=== PATIENT | female | born 1940 | race Caucasian/White ===

== ENCOUNTER 2016-08-11 17:21 | Inpatient (IN) | payer OTHER, BC ==
[2016-08-11 18:32] VITALS: BMI 32.0
--- NOTE | 2016-08-11 21:20 | HP ---
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 Approximately 1 year ago, she was diagnosed with left Achilles tendonitis and notes her gait changed. She states that after her gait changed, she started having right hip and lower back pain. She denies trauma to lower back or hips. The pain was initially controlled with NSAIDS but NSAIDS no longer have any effect and the pain has now progressed to the point that she requires a walker for ambulation. She states that for the past month she has had intermittent urinary incontinence. She is currently scheduled for right THR on 08/14/16 [facility]. Recent Travel: denies PAST MEDICAL HISTORY: HTN, GERD, hyperthyroidism, chronic lower back pain, osteoporosis, AVN of right femoral head PAST SURGICAL HISTORY: denies Social History: Smokin pack years current some day smoker Smoking cessation counseling offered and refused Alcohol: denies Drugs: denies Occupation: retired Resides with with multiple medical problems for whom she is the sole caregiver Family History: non-contributory Allergies epinephrine Allergy-> "difficulty breathing" (Verified 08/10/16 11:29) HOME MEDICATIONS: Home Medications 3 Medication Instructions Recorded Ca/D3/Mag#11/Zinc/Stacker/Turner/Bor 1 each PO DAILY 08/10/16 [Caltrate 600+D Plus Tablet] Cholecalciferol (Vitamin D3) 1,000 unit PO DAILY 08/10/16 [Vitamin D3 -] Hydrochlorothiazide [Hctz -] 12.5 mg PO DAILY 08/10/16 Methimazole [Tapazole -] 5 mg PO DAILY 08/10/16 Metoprolol Succinate [Toprol Xl -] 50 mg PO DAILY MDD 50 mg 08/10/16 Omeprazole 40 mg PO DAILY 08/10/16 Simvastatin [Zocor -] 20 mg PO HS MDD 20 mg 08/10/16 Valsartan [Diovan] 160 mg PO DAILY MDD 160 mg 08/10/16 Zolpidem Tartrate [Ambien] 10 mg PO HS MDD 10 mg 08/10/16 REVIEW OF SYSTEMS CONSTITUTIONAL: Absent: fever, chills, diaphoresis, generalized weakness, malaise, loss of appetite, weight change HEENT: Absent: rhinorrhea, nasal congestion, throat pain, throat swelling, difficulty swallowing, mouth swelling, ear pain, eye pain, visual changes CARDIOVASCULAR: Absent: chest pain, syncope, palpitations, irregular heart rate, lightheadedness , peripheral edema RESPIRATORY: Absent: cough, shortness of breath, dyspnea with exertion, orthopnea, wheezing, stridor, hemoptysis GASTROINTESTINAL: Absent: abdominal pain, abdominal distension, nausea, vomiting, diarrhea, constipation, melena, hematochezia GENITOURINARY: Urinary incontinence Absent: dysuria, frequency, urgency, hesitancy, hematuria, flank pain, genital pain MUSCULOSKELETAL: back pain, right hip pain Absent: myalgia, arthralgia, joint swelling, neck pain SKIN: Absent: rash, itching, pallor HEMATOLOGIC/IMMUNOLOGIC: Absent: easy bleeding, easy bruising, lymphadenopathy, frequent infections ENDOCRINE: Absent: unexplained weight gain, unexplained weight loss, heat intolerance, cold intolerance NEUROLOGIC: bladder incontinence Absent: headache, focal weakness or paresthesias, dizziness, unsteady gait, seizure, mental status changes, saddle anesthesia PSYCHIATRIC: Absent: anxiety, depression, suicidal or homicidal ideation, hallucinations. PHYSICAL EXAMINATION Vital Signs - 24 hr 3 08/11/16 08/11/16 17:58 18:27 Temperature 98.2 F 98.2 F Pulse Rate 63 82 Respiratory 16 17 Rate Blood Pressure 126/47 123/63 O2 Sat by Pulse 99 Oximetry (%) GENERAL: Awake, alert, and fully oriented, in no acute distress. HEAD: Normal with no signs of trauma. EYES: Pupils equal, round and reactive to light, extraocular movements intact, sclera anicteric, conjunctiva clear. No lid lag. EARS, NOSE, THROAT: Ears normal, nares patent, oropharynx clear without exudates. Moist mucous membranes. NECK: Normal range of motion, supple without lymphadenopathy, JVD, or masses. LUNGS: Breath sounds equal, clear to auscultation bilaterally. No wheezes, and no crackles. No accessory muscle use. HEART: occasional irregular rhythm, normal S1 and S2 without murmur, rub or gallop. ABDOMEN: Soft, nontender, not distended, normoactive bowel sounds, no guarding, no rebound, no masses. No hepatomegaly or splenomegaly. MUSCULOSKELETAL: Normal range of motion at all joints except right hip where ROM decreased due to pain. Able to range against resistance to joints distal to Right hip. No bony deformities. Tenderness over right hip and sacrum. No CVA tenderness. UPPER EXTREMITIES: 2+ pulses, warm, well-perfused. No cyanosis. No clubbing. No peripheral edema. Abrasion to left anterior lower leg. LOWER EXTREMITIES: 2+ pulses, warm, well-perfused. No calf tenderness. No peripheral edema. NEUROLOGICAL: Cranial nerves II-XII intact. Normal speech. No change in sensation to BLE. PSYCHIATRIC: Cooperative. Good eye contact. Appropriate mood and affect. SKIN: Warm, dry, normal turgor, no rashes or lesions noted, normal capillary refill. Blanchable erythema in groin. EKG: SR with occasional PAC's Ventricular rate of 69 LA- 120ms QRS- 80ms QT- 400ms ASSESSMENT/PLAN: A: This is a 75 yo woman with history of HTN, GERD, hypothyroidism, chronic lower back pain, osteoporosis and AVN of right femoral head who was transferred from [facility] s/p evaluation of [facility] [place] medical optimization and pain management pre-op for right THR on 08/14/16. Neurosurgical evaluation reveals no surgical intervention for narrowing of spinal canal at this time. She denies trauma to lower back or hips. She states that for the past month she has had intermittent urinary incontinence- none in past 48 hours. Occasional irregular beats noted- will do EKG. +3 leuk esterase with no bacteria seen on UA will cx and treat P: AVN of right femoral head -gabapentin and Percocet for pain control -pre-op labs collected on 08/10- no contraindications for THR -Ortho- Lent following -T&S -EKG as noted above HTN -continue home meds Hyperthyroid -continue home meds UTI -cx -start Keflex F/E/N -regular diet now -NPO after MN 06/14/16 -IVF when NPO Dispo: Currently requires inpatient management of pain pre-op Code Status: FULL CODE Visit type - Emergency Visit Emergency Visit: No - New Patient This patient is new to me today: Yes Date on this admission: 08/24/16 - Critical Care Critical Care patient: No
[2016-08-11] MEDS ORDERED: OXYCODONE/APAP 5/325MG COMBO TABLET PO ONE (22:35)
[2016-08-11] MEDS: HEPARIN NA (PORCINE) 5,000 UNITS/ML 1ML VIAL SQ SCH (22:54)
[2016-08-11] MEDS: GABAPENTIN 100 MG CAPSULE (FP) PO SCH (22:55)
[2016-08-11] MEDS: ZOLPIDEM TARTRATE 5 MG TABLET PO PRN (23:03)
[2016-08-12] MEDS: GABAPENTIN 100 MG CAPSULE (FP) PO SCH ×3 (06:34→21:11)
[2016-08-12] MEDS: CEPHALEXIN MONOHYDRATE 500 MG CAPSULE (UD) PO SCH ×3 (06:34→17:42)
[2016-08-12] MEDS: OXYCODONE/APAP 5/325MG COMBO TABLET PO PRN ×3 (06:35→23:59)
[2016-08-12] MEDS: NYSTATIN POWDER 100,000 UNITS/GM - 15 GM TOPICAL POWDER TP SCH ×3 (06:36→21:11)
[2016-08-12] MEDS: METHIMAZOLE 5 MG TABLET (FP) PO SCH (09:49)
[2016-08-12] MEDS: HEPARIN NA (PORCINE) 5,000 UNITS/ML 1ML VIAL SQ SCH ×2 (09:49→21:12)
[2016-08-12] MEDS: VALSARTAN 160 MG TABLET (UD) PO SCH (09:49)
[2016-08-12] MEDS: METOPROLOL SUCCINATE 50 MG TAB.SR.24H (FP) PO SCH (09:49)
[2016-08-12] MEDS: PANTOPRAZOLE 40 MG TABLET (FP) PO SCH (09:49)
[2016-08-12] MEDS: HYDROCHLOROTHIAZIDE 12.5 MG CAPSULE (FP) PO SCH (09:49)
[2016-08-12] MEDS: CHOLECALCIFEROL (VITAMIN D3) 1,000 UNIT TABLET (FP) PO SCH (09:49)
--- NOTE | 2016-08-12 10:18 | PN ---
Physical Exam: SUBJECTIVE: Patient seen and examined Reports Rt hip pain controlled with pain medications, denies cp, sob, palpitations, dizziness, weakness,abdominal pain, N/V/D or urinary symptoms. OBJECTIVE: Vital Signs Period Temp Pulse Resp BP Sys/Kelly Pulse Ox Last 24 Hr 98.2 F-99.3 F 63-82 16-20 107-130/33-63 94-99 GENERAL: The patient is awake, alert, and fully oriented, in no acute distress. HEAD: Normal with no signs of trauma. EYES: PERRL, extranuclear movements intact, sclera anicteric, conjunctiva clear. No ptosis. ENT: Ears normal, nares patent, oropharynx clear without exudates, moist mucous membranes. NECK: Trachea midline, full range of motion, supple. LUNGS: Breath sounds equal, clear to auscultation bilaterally, no wheezes, no crackles, no accessory muscle use. HEART: Regular rate and rhythm, S1, S2 without murmur, rub or gallop. ABDOMEN: Soft, nontender, nondistended, normoactive bowel sounds, no guarding, no rebound, no hepatosplenomegaly, no masses. EXTREMITIES: 2+ pulses, warm, well-perfused, no edema, Rt hip tenderness NEUROLOGICAL: Cranial nerves II through XII grossly intact. Normal speech, gait not observed. PSYCH: Normal mood, normal affect. SKIN: Warm, dry, normal turgor, no rashes or lesions noted Active Medications Generic Name Dose Route Start Last Admin Trade Name Freq PRN Reason Stop Dose Admin Atorvastatin Calcium 10 mg 08/12/16 22:00 Lipitor - PO HS WALKER Cephalexin HCl 500 mg 08/12/16 06:00 08/12/16 06:34 Keflex - PO 500 mg Q6HPO WALKER Administration Cholecalciferol 1,000 unit 08/12/16 10:00 08/12/16 09:49 Vitamin D3 - PO 1,000 unit DAILY WALKER Administration Gabapentin 100 mg 08/11/16 22:30 08/12/16 06:34 Neurontin - PO 100 mg TID WALKER Administration Heparin Sodium (Porcine) 5,000 unit 08/11/16 22:00 08/12/16 09:49 Heparin - SQ 5,000 unit BID WALKER Administration Hydrochlorothiazide 12.5 mg 08/12/16 10:00 08/12/16 09:49 Hctz - PO Not Given DAILY WALKER Methimazole 5 mg 08/12/16 10:00 08/12/16 09:49 Tapazole - PO 5 mg DAILY WALKER Administration Metoprolol Succinate 50 mg 08/12/16 10:00 08/12/16 09:49 Toprol Xl - PO Not Given DAILY WALKER Non-Formulary Medication 1 each 08/12/16 10:00 Ca/D3/Mag#11/Zinc/[place]/Turner/Bor [Caltrate 600+D Plus Tablet] PO DAILY WALKER Nystatin 1 applic 08/12/16 06:00 08/12/16 06:36 Nystop Powder - TP 1 applic TID WALKER Administration Oxycodone/Acetaminophen 2 combo 08/11/16 22:31 08/12/16 06:35 Percocet 5/325 - PO 2 combo Q6H PRN Administration PAIN LEVEL 6-10 Pantoprazole Sodium 40 mg 08/12/16 10:00 08/12/16 09:49 Protonix - PO 40 mg DAILY WALKER Administration Valsartan 160 mg 08/12/16 10:00 08/12/16 09:49 Diovan - PO Not Given DAILY WALKER Zolpidem Tartrate 5 mg 08/11/16 22:51 08/11/16 23:03 Ambien - PO 5 mg HS PRN Administration EKG: SR with occasional PAC's xray of right hip pelvis: marked joint space narrowing with subchondral sclerosis and lucencies and with focal concavity of the superolateral right femoral head concerning for AVN w/subchondral collapse and DJD. as per radiologist Dr Mojica MRI of lumbar spine w/o contrast: (08/09/16) severe spinal stenosis at L2-L3 through L4-L%. At the level of the L2 vertebral body there is buckling of the nerve roots of the cauda equina. L5-S1 there is billateral L5 nerve root impingement. as per radiologist Dr Ching ([facility]) ASSESSMENT/PLAN: This is a 75 yo woman with history of HTN, GERD, hypothyroidism, chronic lower back pain, osteoporosis and AVN of right femoral head who was transferred from [facility]s/p evaluation of [facility] [place] [place] for medical optimization and pain management. Now with ongoing worsening of hip and lower back pain for the past 24 hours and the inability to ambulate independently. Dr Chadwick and was referred to the emergency department for further management of a right femoral head fracture secondary to AVN. *AVN of right femoral head -Gabapentin and Percocet for pain control -pre-op labs collected on 08/10- no contraindications for THR -Ortho- Lent following -T&S -for right THR on 08/14/16. *HTN- Bp controlled -continue home meds *Hyperthyroid -continue home meds *UTI asymptomatic -will repeat UA -on Keflex - afebrile * urinary retention - bladder scan showed >600 urine retention - Dasilva placed - will order bladder US - will monitor urine output F/E/N -regular diet now -NPO after MN 08/14/16 -IVF when NPO Dispo: Currently requires inpatient management of pain pre-op Code Status: FULL CODE Visit type - Emergency Visit Emergency Visit: Yes ED Registration Date: 08/11/16 Care time: The patient presented to the Emergency Department on the above date and was hospitalized for further evaluation of their emergent condition. - New Patient This patient is new to me today: Yes Date on this admission: 08/12/16 - Critical Care Critical Care patient: No
[2016-08-12 11:41] LABS: PH,URINE 6.5 (4.5-8); URINE APPEARANCE Clear; URINE BILIRUBIN Negative (NEGATIVE); URINE BLOOD Negative (NEGATIVE); URINE GLUCOSE (UA) Negative (NEGATIVE); URINE KETONE Negative (NEGATIVE); URINE LEUK ESTERASE Negative (NEGATIVE); URINE NITRITE Negative (NEGATIVE); URINE PROTEIN Negative (NEGATIVE); URINE UROBILINOGEN 0.2 E.U/dl (0.2-1.0)
[2016-08-12 14:33] LABS: URINE COLOR YELLOW
[2016-08-12] MEDS: ATORVASTATIN CA 10 MG TABLET (FP) PO SCH (21:11)
[2016-08-13] MEDS: CEPHALEXIN MONOHYDRATE 500 MG CAPSULE (UD) PO SCH ×3 (00:01→12:02)
[2016-08-13] MEDS: ZOLPIDEM TARTRATE 5 MG TABLET PO PRN (01:53)
[2016-08-13] MEDS: GABAPENTIN 100 MG CAPSULE (FP) PO SCH ×3 (06:19→21:04)
[2016-08-13] MEDS: NYSTATIN POWDER 100,000 UNITS/GM - 15 GM TOPICAL POWDER TP SCH ×3 (06:20→21:07)
[2016-08-13] MEDS: OXYCODONE/APAP 5/325MG COMBO TABLET PO PRN (07:40)
[2016-08-13 08:07] LABS: BASOPHIL 0.8 % (0-2.0); EOSINOPHIL 1.5 % (0-4.5); MCH 27.2 pg (25.7-33.7); MCHC 32.4 g/dl (32.0-36.0); MEAN PLT VOLUME 9.4 fl (7.5-11.1); NEUTROPHILS 55.4 % (42.8-82.8); PLATELET COUNT 204 K/MM3 (134-434); RDW 14.3 % (11.6-15.6); WHITE BLOOD COUNT 7.1 K/mm3 (4.0-10.8)
[2016-08-13 08:33] LABS: ANION GAP 9 (8-16); CALCIUM 8.9 mg/dl (8.4-10.2); CO2 28 mmol/L (22-28); CREATININE 0.7 mg/dl (0.6-1.3); GLUCOSE,RANDOM 111 mg/dl (74-106)
--- NOTE | 2016-08-13 08:53 | EKG ---
Test Reason : Blood Pressure : / mmHG Vent. Rate : 069 BPM Atrial Rate : 069 BPM P-R Int : 140 ms QRS Dur : 084 ms QT Int : 388 ms P-R-T Axes : 046 004 000 degrees QTc Int : 415 ms SINUS RHYTHM WITH PREMATURE ATRIAL COMPLEXES OTHERWISE NORMAL ECG WHEN COMPARED WITH ECG OF 10-AUG-2016 11:52, PREMATURE ATRIAL COMPLEXES ARE NOW PRESENT Confirmed by ORALIA AGUILAR MD ([id number]) on 08/13/2016 8:53:00 AM Referred By: DR. ALEX Confirmed By:ORALIA AGUILAR MD
[2016-08-13] MEDS: VALSARTAN 160 MG TABLET (UD) PO SCH (09:16)
[2016-08-13] MEDS: METHIMAZOLE 5 MG TABLET (FP) PO SCH (09:17)
[2016-08-13] MEDS: PANTOPRAZOLE 40 MG TABLET (FP) PO SCH (09:17)
[2016-08-13] MEDS: HYDROCHLOROTHIAZIDE 12.5 MG CAPSULE (FP) PO SCH (09:17)
[2016-08-13] MEDS: METOPROLOL SUCCINATE 50 MG TAB.SR.24H (FP) PO SCH (09:17)
[2016-08-13] MEDS: CHOLECALCIFEROL (VITAMIN D3) 1,000 UNIT TABLET (FP) PO SCH (09:17)
[2016-08-13] MEDS: HEPARIN NA (PORCINE) 5,000 UNITS/ML 1ML VIAL SQ SCH ×2 (09:18→21:04)
--- NOTE | 2016-08-13 09:30 | PN ---
Physical Exam: SUBJECTIVE: Patient seen and examined, reports feeling ongoing lower back pain radiating downward to right leg. OBJECTIVE: patient is a 75 yo woman with history of HTN, GERD, hypothyroidism , chronic lower back pain, osteoporosis and AVN of right femoral head who was transferred from [facility] s/p evaluation by neurosurgery of [facility] [place] for medical optimization and pain management. worsening of hip and lower back pain and is unable to ambulate independently. admitted for right THR due to right femoral head fracture secondary to AVN. Vital Signs Period Temp Pulse Resp BP Sys/Kelly Pulse Ox Last 24 Hr 98.2 F-99.0 F 64-76 19-20 107-126/33-49 94-95 GENERAL: The patient is awake, alert, and fully oriented, in no acute distress. HEAD: Normal with no signs of trauma. EYES: PERRL, extraocular movements intact, sclera anicteric, conjunctiva clear. No ptosis. ENT: Ears normal, nares patent, oropharynx clear without exudates, moist mucous membranes. NECK: Trachea midline, full range of motion, supple. LUNGS: Breath sounds equal, clear to auscultation bilaterally, no wheezes, no crackles, no accessory muscle use. HEART: Regular rate and rhythm, S1, S2, systolic murmur 2/6, no rub or gallop. ABDOMEN: Soft, nontender, nondistended, normoactive bowel sounds, no guarding, no rebound, no hepatosplenomegaly, no masses. EXTREMITIES: 2+ pulses, warm, well-perfused, +1 trace edema bilaterally. point tenderness noted to the right lateral hip MS: muscles spasm noted to L5 NEUROLOGICAL: Cranial nerves II through XII grossly intact. Normal speech, gait not observed. PSYCH: Normal mood, normal affect. SKIN: Warm, dry, normal turgor, no rashes or lesions noted Laboratory Results - last 24 hr 08/12/16 08/13/16 08/13/16 11:30 07:30 07:30 WBC 7.1 RBC 4.14 Hgb 11.3 Hct 34.8 MCV 84.0 MCHC 32.4 RDW 14.3 Plt Count 204 MPV 9.4 D Neutrophils % 55.4 Lymphocytes % 32.6 D Monocytes % 9.7 Eosinophils % 1.5 D Basophils % 0.8 Sodium 138 Potassium 4.1 Chloride 101 Carbon Dioxide 28 Anion Gap 9 BUN 17 Creatinine 0.7 Random Glucose 111 H Calcium 8.9 Urine Color Yellow Urine Appearance Clear Urine pH 6.5 Ur Specific [place] 1.015 Urine Protein Negative Urine Glucose (UA) Negative Urine Ketones Negative Urine Blood Negative Urine Nitrite Negative Urine Bilirubin Negative Urine Urobilinogen 0.2 e.u/dl Ur Leukocyte Esterase Negative Active Medications Generic Name Dose Route Start Last Admin Trade Name Freq PRN Reason Stop Dose Admin Atorvastatin Calcium 10 mg 08/12/16 22:00 08/12/16 21:11 Lipitor - PO 10 mg HS WALKER Administration Cephalexin HCl 500 mg 08/12/16 06:00 08/13/16 06:19 Keflex - PO 500 mg Q6HPO WALKER Administration Cholecalciferol 1,000 unit 08/12/16 10:00 08/13/16 09:17 Vitamin D3 - PO 1,000 unit DAILY WALKER Administration Gabapentin 100 mg 08/11/16 22:30 08/13/16 06:19 Neurontin - PO 100 mg TID WALKER Administration Heparin Sodium (Porcine) 5,000 unit 08/11/16 22:00 08/13/16 09:18 Heparin - SQ 5,000 unit BID WALKER Administration Hydrochlorothiazide 12.5 mg 08/12/16 10:00 08/13/16 09:17 Hctz - PO 12.5 mg DAILY WALKER Administration Methimazole 5 mg 08/12/16 10:00 08/13/16 09:17 Tapazole - PO 5 mg DAILY WALKER Administration Metoprolol Succinate 50 mg 08/12/16 10:00 08/13/16 09:17 Toprol Xl - PO Not Given DAILY [facility] Non-Formulary Medication 1 each 08/12/16 10:00 Ca/D3/Mag#11/Zinc/[place]/Turner/Bor [Caltrate 600+D Plus Tablet] PO DAILY WALKER Nystatin 1 applic 08/12/16 06:00 08/13/16 06:20 Nystop Powder - TP 1 applic TID WALKER Administration Oxycodone/Acetaminophen 2 combo 08/11/16 22:31 08/13/16 07:40 Percocet 5/325 - PO 2 combo Q6H PRN Administration PAIN LEVEL 6-10 Pantoprazole Sodium 40 mg 08/12/16 10:00 08/13/16 09:17 Protonix - PO 40 mg DAILY WALKER Administration Valsartan 160 mg 08/12/16 10:00 08/13/16 09:16 Diovan - PO 160 mg DAILY WALKER Administration Zolpidem Tartrate 5 mg 08/11/16 22:51 08/13/16 01:53 Ambien - PO 5 mg HS PRN Administration Microbiology 08/12/16 11:30 Urine - Urine Lopez Urine Culture - Final NO GROWTH OBTAINED IMAGING EKG: SR with occasional PAC's xray of right hip pelvis: marked joint space narrowing with subchondral sclerosis and lucencies and with focal concavity of the superolateral right femoral head concerning for AVN w/subchondral collapse and DJD. as per radiologist Dr Mojica MRI of lumbar spine w/o contrast: (08/09/16) severe spinal stenosis at L2-L3 through L4-L5. At the level of the L2 vertebral body there is buckling of the nerve roots of the cauda equina. L5-S1 there is billateral L5 nerve root impingement. as per radiologist Dr Ching ([facility]) ASSESSMENT/PLAN: 1) MS: AVN of right femoral head - continue neurontion - change percocet to oxycodone 10mg q6h for severe pain and tylenol prn for minimal pain - ortho-lent, consulted and following - pending right karli thr tomm in am lower back pain - evaluated by neurosurgery at [facility] no cauda equina at this time - strict neurovascular assessments q4h - will need follow up with ear nose and throat specialist as outpatient 2) hypertension -b/p at goal, continue toprol and diovan - systolic murmur noted on exam pending echo - strict b/p monitoring 3) gu: - urine culture noted, d/c keflex - urinary retention, continue lopez - monitor I&O 4) endo hypothyroidism - continue tapazole F/E/N -regular diet now -NPO after MN 08/14/16 -IVF when NPO Dispo: Currently requires inpatient management of pain pre-op, pt is medically optimized for surgery. Code Status: FULL CODE Visit type - Emergency Visit Emergency Visit: No - New Patient This patient is new to me today: Yes Date on this admission: 08/13/16 - Critical Care Critical Care patient: No - Discharge Referral Referred to [facility] No
[2016-08-13] MEDS: diazePAM 5 MG TABLET PO PRN (10:56)
[2016-08-13] MEDS: LACTOBACILLUS ACIDOPHILUS 1 EACH TAB (FP) PO SCH (15:03)
[2016-08-13] MEDS: oxyCODONE HCL 5 MG TABLET PO PRN (15:05)
[2016-08-13] MEDS: ATORVASTATIN CA 10 MG TABLET (FP) PO SCH (21:04)
[2016-08-14] MEDS ORDERED: SODIUM CHLORIDE 0.45%/POT 1,000 ML IV SCH
[2016-08-14] MEDS: ZOLPIDEM TARTRATE 5 MG TABLET PO PRN ×2 (00:30→22:27)
[2016-08-14] MEDS: oxyCODONE HCL 5 MG TABLET PO PRN ×3 (00:30→20:39)
[2016-08-14] MEDS: GABAPENTIN 100 MG CAPSULE (FP) PO SCH ×3 (05:32→21:16)
[2016-08-14] MEDS: NYSTATIN POWDER 100,000 UNITS/GM - 15 GM TOPICAL POWDER TP SCH ×3 (05:35→21:18)
[2016-08-14] MEDS ORDERED: CEFAZOLIN 1 GM/D5W 50 ML IVPB ONE (07:52)
[2016-08-14] MEDS ORDERED: TRANEXAMIC ACID 1000 MG/10 ML VIAL IVPUSH ONE (07:52)
[2016-08-14] MEDS ORDERED: CELECOXIB 200 MG CAPSULE PO ONE (07:52)
[2016-08-14] MEDS: METHIMAZOLE 5 MG TABLET (FP) PO SCH (08:00)
[2016-08-14] MEDS: VALSARTAN 160 MG TABLET (UD) PO SCH (08:00)
[2016-08-14] MEDS: METOPROLOL SUCCINATE 50 MG TAB.SR.24H (FP) PO SCH (08:00)
[2016-08-14] MEDS ORDERED: DEXAMETHASONE SOD PHOSPHATE/PF 10 MG/ML SDV ONE (08:35)
[2016-08-14] MEDS ORDERED: ROPIVACAINE HCL 0.5% 30ML VIAL ONE (08:35)
[2016-08-14] MEDS ORDERED: MIDAZOLAM HCL 2 MG/2 ML SINGLE DOSE VIAL ONE ×2 (08:35→09:03)
[2016-08-14] MEDS ORDERED: EPINEPHrine/PF 1 MG/1 ML (1:1,000) AMPULE ONE (08:35)
[2016-08-14] MEDS: HYDROCHLOROTHIAZIDE 12.5 MG CAPSULE (FP) PO SCH (08:59)
[2016-08-14] MEDS: HEPARIN NA (PORCINE) 5,000 UNITS/ML 1ML VIAL SQ SCH (08:59)
[2016-08-14] MEDS: LACTOBACILLUS ACIDOPHILUS 1 EACH TAB (FP) PO SCH (08:59)
[2016-08-14] MEDS: PANTOPRAZOLE 40 MG TABLET (FP) PO SCH (09:00)
[2016-08-14] MEDS: CHOLECALCIFEROL (VITAMIN D3) 1,000 UNIT TABLET (FP) PO SCH (09:00)
[2016-08-14] MEDS ORDERED: SUCCINYLCHOLINE CHLORIDE 200 MG/10 ML VIAL ONE (09:03)
[2016-08-14] MEDS ORDERED: ceFAZolin SODIUM 1 GM VIAL ONE (09:04)
[2016-08-14] MEDS ORDERED: ePHEDrine SULFATE 50 MG/1 ML AMPULE ONE (10:03)
[2016-08-14] MEDS ORDERED: MAGNESIUM HYDROX 2400MG/30ML ORAL SUSPENSION 30 ML CUP PO PRN (11:44)
[2016-08-14] MEDS ORDERED: MAG HYDROX/AL HYDROX/SIMETH 30 ML UNIT-DOSE CUP PO PRN (11:44)
[2016-08-14] MEDS ORDERED: ONDANSETRON 4 MG/2 ML VIAL IVPB PRN (11:44)
[2016-08-14] MEDS ORDERED: LACTATED RINGERS SOLUTION 1,000 ML IV SCH (11:45)
--- NOTE | 2016-08-14 11:51 | OP ---
Operative Note - Note: Operative Date: 08/14/16 (malena) Pre-Operative Diagnosis: right hip avn with collapse, djd Operation: right makoplasty thr Post-Operative Diagnosis: Same as Pre-op Surgeon: Bebeto Chadwick Supervisor Carpenters: Nolan Talley Anesthesiologist/QUALITY ASSURANCE DIRECTOR: Rylan Smith Anesthesia: Spinal, Local Specimens Removed: femoral head Estimated Blood Loss (mls): 150 Operative Report Dictated: Yes
--- NOTE | 2016-08-14 12:19 | PN ---
Physical Exam: SUBJECTIVE: Patient seen and examined, patient reports feeling well, relief of back muscle spasms after taking valium, denies any chest pain or shortness of breath. OBJECTIVE: patient is a 75 yo woman with history of HTN, GERD, hypothyroidism, chronic lower back pain, osteoporosis and AVN of right femoral head who was transferred from [facility] s/p evaluation by neurosurgery of [facility] for medical optimization and pain management. worsening of hip and lower back pain and is unable to ambulate independently. admitted for right THR due to right femoral head fracture secondary to AVN. Vital Signs Period Temp Pulse Resp BP Sys/Kelly Pulse Ox Last 24 Hr 98.3 F-99.2 F 73-89 16-20 99-138/35-57 94-100 GENERAL: The patient is awake, alert, and fully oriented, in no acute distress. HEAD: Normal with no signs of trauma. EYES: PERRL, extraocular movements intact, sclera anicteric, conjunctiva clear. No ptosis. ENT: Ears normal, nares patent, oropharynx clear without exudates, moist mucous membranes. NECK: Trachea midline, full range of motion, supple. LUNGS: Breath sounds equal, clear to auscultation bilaterally, no wheezes, no crackles, no accessory muscle use. HEART: Regular rate and rhythm, S1, S2, systolic murmur 2/6, no rub or gallop. ABDOMEN: Soft, nontender, nondistended, normoactive bowel sounds, no guarding, no rebound, no hepatosplenomegaly, no masses. : lopez, clear yellow urine EXTREMITIES: 2+ pulses, warm, well-perfused, +1 trace edema bilaterally. point tenderness noted to the right lateral hip NEUROLOGICAL: Cranial nerves II through XII grossly intact. Normal speech, gait not observed. PSYCH: Normal mood, normal affect. SKIN: Warm, dry, normal turgor, no rashes or lesions noted Active Medications Generic Name Dose Route Start Last Admin Trade Name Freq PRN Reason Stop Dose Admin Acetaminophen 650 mg 08/13/16 09:33 Tylenol - PO Q4H PRN FEVER OR PAIN Al Hydroxide/Mg Hydroxide 30 ml 08/14/16 11:44 Mylanta Oral Suspension - PO Q4H PRN DYSPEPSIA Aspirin 325 mg 08/15/16 08:00 Asa - PO DAILY@0800 [facility] Atorvastatin Calcium 10 mg 08/12/16 22:00 08/13/16 21:04 Lipitor - PO 10 mg HS WALKER Administration Cholecalciferol 1,000 unit 08/12/16 10:00 08/14/16 09:00 Vitamin D3 - PO Not Given DAILY [facility] Diazepam 5 mg 08/13/16 09:34 08/13/16 10:56 Valium - PO 5 mg Q6H PRN Administration MUSCLE SPASMS Gabapentin 100 mg 08/11/16 22:30 08/14/16 05:32 Neurontin - PO 100 mg TID WALK[facility] Administration Hydrochlorothiazide 12.5 mg 08/12/16 10:00 08/14/16 08:59 Hctz - PO Not Given DAILY [facility] Potassium Chloride/Sodium Chloride 1,000 mls @ 83 mls/hr 08/14/16 00:00 00:13 1/2ns+20meq Kcl IV 83 mls/hr ASDIR WALKER Administration Cefazolin Sodium 2 gm/ 50 mls @ 200 mls/hr 08/14/16 18:00 Dextrose IVPB 08/15/16 02:14 Q8H-IV [facility]ALK[facility] Lactated Ringer's 1,000 mls @ 125 mls/hr 08/14/16 11:45 Lactated Ringers Solution IV 08/15/16 06:00 ASDIR WALKER Lactobacillus Acidophilus 1 tab 08/13/16 14:45 08/14/16 08:59 Bacid - PO Not Given DAILY [facility] Magnesium Hydroxide 30 ml 08/14/16 11:44 Milk Of Magnesia - PO PRN PRN CONSTIPATION Methimazole 5 mg 08/12/16 10:00 08/14/16 08:00 Tapazole - PO 5 mg DAILY [facility] Administration Metoprolol Succinate 50 mg 08/12/16 10:00 08/14/16 08:00 Toprol Xl - PO 50 mg DAILY [facility] Administration Multivitamins/Minerals/Vitamin C 1 tab 08/15/16 10:00 Tab-A-Vit - PO DAILY [facility] Non-Formulary Medication 1 each 08/12/16 10:00 Ca/D3/Mag#11/Zinc/Chief Informatics Officer/Turner/Bor [Caltrate 600+D Plus Tablet] PO DAILY [facility] Nystatin 1 applic 08/12/16 06:00 08/14/16 05:35 Nystop Powder - TP 1 applic TID WALKER Administration Ondansetron HCl 4 mg 08/14/16 11:44 Zofran Injection IVPB Q6H PRN NAUSEA Oxycodone HCl 10 mg 08/13/16 09:32 08/14/16 00:30 Roxicodone - PO 10 mg Q6H PRN Administration PAIN Pantoprazole Sodium 40 mg 08/12/16 10:00 08/14/16 09:00 Protonix - PO Not Given DAILY [facility] Senna/Docusate Sodium tablet 08/14/16 22:00 Pericolace - PO BID [facility] Valsartan 160 mg 08/12/16 10:00 08/14/16 08:00 Diovan - PO 160 mg DAILY [facility] Administration Zolpidem Tartrate 5 mg 08/11/16 22:51 08/14/16 00:30 Ambien - PO 5 mg HS PRN Administration Microbiology 08/12/16 11:30 Urine - Urine Lopez Urine Culture - Final NO GROWTH OBTAINED IMAGING EKG: SR with occasional PAC's xray of right hip pelvis: marked joint space narrowing with subchondral sclerosis and lucencies and with focal concavity of the superolateral right femoral head concerning for AVN w/subchondral collapse and DJD. as per radiologist Dr Mojica MRI of lumbar spine w/o contrast: (08/09/16) severe spinal stenosis at L2-L3 through L4-L5. At the level of the L2 vertebral body there is buckling of the nerve roots of the cauda equina. L5-S1 there is billateral L5 nerve root impingement. as per radiologist Dr Ching ([facility]) ASSESSMENT/PLAN: 1) MS: AVN of right femoral head - continue neurontion - continue oxycodone 10mg q6h for severe pain and tylenol prn for minimal pain - ortho-lent, consulted and following - pending right karli thr today lower back pain - evaluated by neurosurgery at [facility] no cauda equina at this time - strict neurovascular assessments q4h - will need follow up with workers compensation claims specialist as outpatient 2) hypertension -b/p at goal, continue toprol and diovan - echo: grade 1 diastolic dysfunction, ef 55-60%, mild mr, mild tr - strict b/p monitoring 3) gu: - urinary retention, continue lopez - monitor I&O 4) endo hypothyroidism - continue tapazole F/E/N -NPO IVF - replete lytes prn ppx - protoniix - scd/oscar - hold ac pending or Dispo: Currently requires inpatient management of pain pre-op, pt is medically optimized for surgery. Code Status: FULL CODE
[2016-08-14] MEDS: CALCIUM 500MG/VIT-D 200 UNITS COMBO TABLET (FP) PO SCH (14:49)
[2016-08-14] MEDS: CEFAZOLIN 2 GM/D5W 50 ML IVPB SCH (17:26)
[2016-08-14] MEDS: ACETAMINOPHEN 325 MG TABLET (FP) PO PRN (19:12)
--- NOTE | 2016-08-14 19:46 | SPEC ---
DATE OF SURGERY: 08/14/2016 PREOPERATIVE DIAGNOSIS: Degenerative joint disease, right hip. POSTOPERATIVE DIAGNOSIS: Degenerative joint disease, right hip. PROCEDURE: Right total hip replacement with robotic arm navigation assistance (Makoplasty). SURGEON: Dr. Bebeto Chadwick MEDICAL INSTRUMENT TECHNICIAN: RAINER Ross ANESTHESIA: Spinal and regional. CLOSURE: Colt components with a No. 4 Accolade 2 stem, a standard MDM head, a 50 Tritanium press-fit acetabulum with 2 screws, No. 1 Vicryl for fascia, 0 and 2-0 subcutaneous, 3-0 Monocryl subcuticular, with skin glue for skin, 4-0 undyed Vicryl for pin sites. ESTIMATED BLOOD LOSS: Less than 150 mL. COMPLICATIONS: None. CONDITION: To recovery room in stable condition. DESCRIPTION OF OPERATIVE PROCEDURE: The patient was taken to the operating room. Spinal anesthesia as well as sciatic block was administered by the anesthesiologist. The IV Kefzol and TXA were administered prophylactically prior to the case. The patient was placed in the lateral decubitus position with all prominences well-padded. An EKG pad was secured to the inferior pole of the patella for limb length calculations intraoperatively. The right hip area was prepped and draped in the usual sterile fashion. A 12.0-15.0 cm curved longitudinal incision over the posterolateral aspect of the greater trochanter was made. Hemostasis was achieved with Bovie cautery. Sharp dissection was carried down to the level of the fascia. The fascia was opened the entire length of the incision, spreading the gluteus michael fibers in the direction of their origin. A Charnley retractor was placed in this layer, and care was taken to be far away from the sciatic nerve. The short external rotators were detached off the insertion of the greater trochanter and peeled off the capsule. A posterior capsulectomy was then performed. A checkpoint was malleted into the greater trochanter. Three small stab incisions were done on the iliac crest. Through these stab incisions, threaded guide pins were drilled into the iliac crest. These pins were fastened to the Navigation array. The check point on the greater trochanter, and the EKG pad on the inferior pole of the patella were used to measure preoperative limb length and offset. The hip was then dislocated. The hip was osteotomized at the appropriate level as directed by the preoperative template. Anterior and posterior retractors were placed around the acetabulum. Circumferential labrum was excised. A checkpoint was malleted into the acetabulum superiorly. The acetabulum was then registered with the Navigation device with multiple sites within the acetabulum and around the rim of the acetabulum. I t was then confirmed popping the blue bubbles, confirming ideal position and confirmation of adequate registration with the Navigation device. Using a 48 reamer, which was decided preoperatively on the preoperative template, the robotic arm was brought into the field and was used to ream the acetabulum down to the appropriate depth with the appropriate orientation and inversion applied. After reaming, a good hemispherical bleeding surface was encountered in the acetabulum. A COLT shell of the appropriate size was then malleted into place achieving excellent fit. Confirmation of the appropriate orientation and inversion was confirmed using the probe, and assuring that the acetabular cup was placed in the ideal position as templated preoperatively. A real liner was then clipped into place with a 10 degree lip in the posterior-superior quadrant. Anterior and posterior osteophytes were removed using osteotome. Next, our attention was directed to the femur. The proximal femur was opened with a box chisel, rat-tail, anchovy and serial reamers. This was done until the appropriate reamer achieved good fit and fill of the proximal femur. A trial reduction with the appropriate neck and head, as again measured from our preoperative template, was performed. Limb lengths were confirmed both visually and using the Navigation device, again measuring the inferior pole of the patella and the checkpoint of the greater trochanter. This confirmed ideal position of the femoral component, lengths and offset. The trial components were removed. The real component was malleted into place. The head was cold-welded to the Charnley and the hip was reduced. Again, the hip was found to have equal limb lengths as described previously. The hip was also taken through a range of motion and found to be stable in external rotation and extension, was stable in marked flexion, stable in adduction and internal rotation, and had a positive hang test and negative telescoping. The hip was irrigated with copious amounts of irrigation. Hemostasis was achieved. Vancomycin powder was sprinkled into the joint. A second dose of TXA was administered. The fascia was closed with No. 1 Vicryl interrupted suture, 0 and 2-0 for subcutaneous, and 3-0 Monocryl subcuticular for skin with skin glue, 4-0 undyed Vicryl for pin sites. This was followed by an Aquacel dressing. The patient was flipped into the supine position. Bilateral SCDs and an abduction pillow were applied. X-rays showed good position of the components. The patient was awakened from anesthesia and transferred to the recovery room in stable condition. COMPLICATIONS: None. ESTIMATED BLOOD LOSS: Less than 100 mL. Lynnette [id number]
[2016-08-14] MEDS: SENNOSIDES/DOCUSATE COMBO (SENNA PLUS) TABLET (UD) PO SCH (21:16)
[2016-08-14] MEDS: ATORVASTATIN CA 10 MG TABLET (FP) PO SCH (21:16)
[2016-08-15] MEDS: CEFAZOLIN 2 GM/D5W 50 ML IVPB SCH (01:35)
[2016-08-15] MEDS: diazePAM 5 MG TABLET PO PRN (03:01)
[2016-08-15] MEDS: oxyCODONE HCL 5 MG TABLET PO PRN ×2 (03:02→08:59)
[2016-08-15] MEDS: GABAPENTIN 100 MG CAPSULE (FP) PO SCH ×3 (06:27→21:20)
[2016-08-15] MEDS: NYSTATIN POWDER 100,000 UNITS/GM - 15 GM TOPICAL POWDER TP SCH ×3 (06:32→21:20)
--- NOTE | 2016-08-15 07:57 | PN ---
Progress Note (short form) - Note Progress Note: Ortho Pt seen and examined s/p right karli thr pod #1 Selected Entries 08/15/16 06:19 Temperature 98.8 F Pulse Rate 81 Respiratory 19 Rate Blood Pressure 134/55 dressing c/d/i, calf soft, nt nvi cbc pending a/p d/c lopez PT dvt ppx pain control d/c planning
[2016-08-15 08:16] LABS: BASOPHIL 0.2 % (0-2.0); MCH 28.1 pg (25.7-33.7); MCHC 33.9 g/dl (32.0-36.0); MEAN CELL VOLUME 82.9 fl (80-96); MEAN PLT VOLUME 9.1 fl (7.5-11.1); NEUTROPHILS 82.1 % (42.8-82.8); PLATELET COUNT 212 K/MM3 (134-434); RDW 13.9 % (11.6-15.6); WHITE BLOOD COUNT 11.9 K/mm3 (4.0-10.8)
[2016-08-15 08:29] LABS: ALBUMIN 2.8 g/dl (3.5-5.0); ALK PHOS 86 U/L (32-92); ANION GAP 9 (8-16); CALCIUM 9.3 mg/dl (8.4-10.2); CO2 25 mmol/L (22-28); CREATININE 0.6 mg/dl (0.6-1.3); GLUCOSE,RANDOM 151 mg/dl (74-106); MAGNESIUM 1.8 mg/dL (1.8-2.4); PHOSPHOROUS 2.9 mg/dl (2.5-4.6); SGOT/AST 51 U/L (10-42); SGPT/ALT 28 U/L (10-40); TOT PROT 5.9 g/dl (6.4-8.3)
[2016-08-15] MEDS: ASPIRIN 325 MG TABLET PO SCH (08:32)
[2016-08-15] MEDS: SENNOSIDES/DOCUSATE COMBO (SENNA PLUS) TABLET (UD) PO SCH ×2 (09:00→21:19)
[2016-08-15] MEDS: METOPROLOL SUCCINATE 50 MG TAB.SR.24H (FP) PO SCH (09:00)
[2016-08-15] MEDS: METHIMAZOLE 5 MG TABLET (FP) PO SCH (09:00)
[2016-08-15] MEDS: VALSARTAN 160 MG TABLET (UD) PO SCH (09:00)
[2016-08-15] MEDS: CALCIUM 500MG/VIT-D 200 UNITS COMBO TABLET (FP) PO SCH (09:00)
[2016-08-15] MEDS: CHOLECALCIFEROL (VITAMIN D3) 1,000 UNIT TABLET (FP) PO SCH (09:00)
[2016-08-15 09:01] LABS: BILIRUBIN,TOTAL < 0.3 mg/dl (0.2-1.0)
[2016-08-15] MEDS: PANTOPRAZOLE 40 MG TABLET (FP) PO SCH (09:01)
[2016-08-15] MEDS: HYDROCHLOROTHIAZIDE 12.5 MG CAPSULE (FP) PO SCH (09:01)
[2016-08-15] MEDS: MULTIVITAMINS (DAILY MVI) TABLET (FP) PO SCH (09:03)
[2016-08-15] MEDS: LACTOBACILLUS ACIDOPHILUS 1 EACH TAB (FP) PO SCH (10:00)
[2016-08-15] MEDS: ACETAMINOPHEN 325 MG TABLET (FP) PO PRN ×2 (12:13→23:22)
--- NOTE | 2016-08-15 13:22 | PN ---
Progress Note (short form) - Note Progress Note: ANESTHESIOLOGY POST-OP CHECK 75F s/p right hip replacement under spinal anesthesia, POD #1. Denies N/V, backache, headache, numbness, weakness. Pain 10/10. Pt is eating lunch. Ambulating and voiding. Vital Signs Temperature 98.8 F 08/15/16 06:19 Pulse Rate 81 08/15/16 06:19 Respiratory Rate 18 08/15/16 07:39 Blood Pressure 134/55 08/15/16 06:19 O2 Sat by Pulse Oximetry (%) 95 08/15/16 07:39 Active Medications Acetaminophen (Tylenol -) 650 mg PO Q4H PRN PRN Reason: FEVER OR PAIN Last Admin: 08/15/16 12:13 Dose: 650 mg Al Hydroxide/Mg Hydroxide (Mylanta Oral Suspension -) 30 ml PO Q4H PRN PRN Reason: DYSPEPSIA Aspirin (Asa -) 325 mg PO DAILY@0800 [facility] Last Admin: 08/15/16 08:32 Dose: 325 mg Atorvastatin Calcium (Lipitor -) 10 mg PO HS [facility] Last Admin: 08/14/16 21:16 Dose: 10 mg Calcium Carbonate/Cholecalciferol (Os-Anup 500+D -) 1 tab PO DAILY [facility] Last Admin: 08/15/16 09:00 Dose: 1 tab Cholecalciferol (Vitamin D3 -) 1,000 unit PO DAILY [facility] Last Admin: 08/15/16 09:00 Dose: 1,000 unit Diazepam (Valium -) 5 mg PO Q6H PRN PRN Reason: MUSCLE SPASMS Last Admin: 08/15/16 03:01 Dose: 5 mg Gabapentin (Neurontin -) 100 mg PO TID [facility] Last Admin: 08/15/16 06:27 Dose: 100 mg Hydrochlorothiazide (Hctz -) 12.5 mg PO DAILY [facility] Last Admin: 08/15/16 09:01 Dose: 12.5 mg Lactobacillus Acidophilus (Bacid -) 1 tab PO DAILY [facility] Last Admin: 08/15/16 10:00 Dose: 1 tab Magnesium Hydroxide (Milk Of Magnesia -) 30 ml PO PRN PRN PRN Reason: CONSTIPATION Methimazole (Tapazole -) 5 mg PO DAILY [facility] Last Admin: 08/15/16 09:00 Dose: 5 mg Metoprolol Succinate (Toprol Xl -) 50 mg PO DAILY [facility] Last Admin: 08/15/16 09:00 Dose: 50 mg Multivitamins/Minerals/Vitamin C (Tab-A-Vit -) 1 tab PO DAILY [facility] Last Admin: 08/15/16 09:03 Dose: 1 tab Nystatin (Nystop Powder -) 1 applic TP TID [facility] Last Admin: 08/15/16 06:32 Dose: 1 applic Ondansetron HCl (Zofran Injection) 4 mg IVPB Q6H PRN PRN Reason: NAUSEA Oxycodone HCl (Roxicodone -) 10 mg PO Q6H PRN PRN Reason: PAIN Last Admin: 08/15/16 08:59 Dose: 10 mg Pantoprazole Sodium (Protonix -) 40 mg PO DAILY [facility] Last Admin: 08/15/16 09:01 Dose: 40 mg Senna/Docusate Sodium (Pericolace -) 1 tablet PO BID [facility] Last Admin: 08/15/16 09:00 Dose: 1 tablet Valsartan (Diovan -) 160 mg PO DAILY [facility] Last Admin: 08/15/16 09:00 Dose: 160 mg Zolpidem Tartrate (Ambien -) 5 mg PO HS PRN Last Admin: 08/14/16 22:27 Dose: 5 mg Gen: Awake, alert Ext: No sensory or motor deficits of B/L lower extremities. No apparent anesthesia complications. Spoke with nurse about pt need for pain medication. Continue management as per primary team.
--- NOTE | 2016-08-15 14:36 | PN ---
Physical Exam: SUBJECTIVE: Patient seen and examined, reports feeling better, denies any paresthesia to the lower extremities. OBJECTIVE: patient is a 75 yo woman with history of HTN, GERD, hypothyroidism , chronic lower back pain, osteoporosis and AVN of right femoral head who was transferred from [facility] s/p evaluation by neurosurgery [place] [facility] [place] medical optimization and pain management. worsening of hip and lower back pain and is unable to ambulate independently. admitted for right THR due to right femoral head fracture secondary to AVN. pt is s/p right THR Karli (08/14/16) pod #1 Vital Signs Period Temp Pulse Resp BP Sys/Kelly Pulse Ox Last 24 Hr 97.8 F-98.9 F 76-81 16-19 105-134/50-55 94-96 GENERAL: The patient is awake, alert, and fully oriented, in no acute distress. HEAD: Normal with no signs of trauma. EYES: PERRL, extraocular movements intact, sclera anicteric, conjunctiva clear. No ptosis. ENT: Ears normal, nares patent, oropharynx clear without exudates, moist mucous membranes. NECK: Trachea midline, full range of motion, supple. LUNGS: Breath sounds equal, clear to auscultation bilaterally, no wheezes, no crackles, no accessory muscle use. HEART: Regular rate and rhythm, S1, S2 without murmur, rub or gallop. ABDOMEN: Soft, nontender, nondistended, normoactive bowel sounds, no guarding, no rebound, no hepatosplenomegaly, no masses. EXTREMITIES: 2+ pulses, warm, well-perfused, no edema. RIGHT LOWER EXTREMITY: dressing CDI, less than 3 second capillary refill, +3 pedal pulse NEUROLOGICAL: Cranial nerves II through XII grossly intact. Normal speech, gait not observed. PSYCH: Normal mood, normal affect. SKIN: Warm, dry, normal turgor, no rashes or lesions noted Laboratory Results - last 24 hr 08/15/16 08/15/16 07:50 07:50 WBC 11.9 H D RBC 3.98 Hgb 11.2 Hct 33.0 MCV 82.9 MCHC 33.9 RDW 13.9 Plt Count 212 MPV 9.1 Neutrophils % 82.1 D Lymphocytes % 10.5 D Monocytes % 7.2 Eosinophils % 0.0 D Basophils % 0.2 Sodium 134 L Potassium 4.4 Chloride 100 Carbon Dioxide 25 Anion Gap 9 BUN 12 D Creatinine 0.6 Creat Clearance w eGFR > 60 Random Glucose 151 H D Calcium 9.3 Phosphorus 2.9 Magnesium 1.8 Total Bilirubin < 0.3 D AST 51 H D ALT 28 D Alkaline Phosphatase 86 Total Protein 5.9 L Albumin 2.8 L D Active Medications Generic Name Dose Route Start Last Admin Trade Name Freq PRN Reason Stop Dose Admin Acetaminophen 650 mg 08/13/16 09:33 08/15/16 12:13 Tylenol - PO 650 mg Q4H PRN Administration FEVER OR PAIN Al Hydroxide/Mg Hydroxide 30 ml 08/14/16 11:44 Mylanta Oral Suspension - PO Q4H PRN DYSPEPSIA Aspirin 325 mg 08/15/16 08:00 08/15/16 08:32 Asa - PO 325 mg DAILY@0800 [facility] Administration Atorvastatin Calcium 10 mg 08/12/16 22:00 08/14/16 21:16 Lipitor - PO 10 mg HS [facility] Administration Calcium Carbonate/Cholecalciferol 1 tab 08/14/16 13:45 08/15/16 09:00 Os-Anup 500+D - PO 1 tab DAILY [facility] Administration Cholecalciferol 1,000 unit 08/12/16 10:00 08/15/16 09:00 Vitamin D3 - PO 1,000 unit DAILY [facility] Administration Diazepam 5 mg 08/13/16 09:34 08/15/16 03:01 Valium - PO 5 mg Q6H PRN Administration MUSCLE SPASMS Gabapentin 100 mg 08/11/16 22:30 08/15/16 13:41 Neurontin - PO 100 mg TID [facility] Administration Hydrochlorothiazide 12.5 mg 08/12/16 10:00 08/15/16 09:01 Hctz - PO 12.5 mg DAILY [facility] Administration Lactobacillus Acidophilus 1 tab 08/13/16 14:45 08/15/16 10:00 Bacid - PO 1 tab DAILY [facility] Administration Magnesium Hydroxide 30 ml 08/14/16 11:44 Milk Of Magnesia - PO PRN PRN CONSTIPATION Methimazole 5 mg 08/12/16 10:00 08/15/16 09:00 Tapazole - PO 5 mg DAILY [facility] Administration Metoprolol Succinate 50 mg 08/12/16 10:00 08/15/16 09:00 Toprol Xl - PO 50 mg DAILY [facility] Administration Multivitamins/Minerals/Vitamin C 1 tab 08/15/16 10:00 08/15/16 09:03 Tab-A-Vit - PO 1 tab DAILY [facility] Administration Nystatin 1 applic 08/12/16 06:00 08/15/16 06:32 Nystop Powder - TP 1 applic TID [facility] Administration Ondansetron HCl 4 mg 08/14/16 11:44 Zofran Injection IVPB Q6H PRN NAUSEA Oxycodone HCl 10 mg 08/13/16 09:32 08/15/16 08:59 Roxicodone - PO 10 mg Q6H PRN Administration PAIN Pantoprazole Sodium 40 mg 08/12/16 10:00 08/15/16 09:01 Protonix - PO 40 mg DAILY [facility] Administration Senna/Docusate Sodium 1 tablet 08/14/16 22:00 08/15/16 09:00 Pericolace - PO 1 tablet BID [facility] Administration Valsartan 160 mg 08/12/16 10:00 08/15/16 09:00 Diovan - PO 160 mg DAILY [facility] Administration Zolpidem Tartrate 5 mg 08/11/16 22:51 08/14/16 22:27 Ambien - PO 5 mg HS PRN Administration Microbiology 08/12/16 11:30 Urine - Urine Lopez Urine Culture - Final NO GROWTH OBTAINED IMAGING EKG: SR with occasional PAC's xray of right hip pelvis: marked joint space narrowing with subchondral sclerosis and lucencies and with focal concavity of the superolateral right femoral head concerning for AVN w/subchondral collapse and DJD. as per radiologist Dr Mojica MRI of lumbar spine w/o contrast: (08/09/16) severe spinal stenosis at L2-L3 through L4-L5. At the level of the L2 vertebral body there is buckling of the nerve roots of the cauda equina. L5-S1 there is billateral L5 nerve root impingement. as per radiologist Dr Ching ([facility]) ASSESSMENT/PLAN: 1) MS: AVN of right femoral head - continue neurontion - continue oxycodone 10mg q6h for severe pain and tylenol prn for minimal pain - ortho-lent, consulted and following - right karli thr 08/14/16 lower back pain - evaluated by neurosurgery at [facility] no cauda equina at this time - strict neurovascular assessments q4h - will need follow up with net application support specialist as outpatient 2) hypertension -b/p at goal, continue toprol and diovan - echo: grade 1 diastolic dysfunction, ef 55-60%, mild mr, mild tr - strict b/p monitoring 3) gu: - urinary retention, continue lopez - monitor I&O 4) endo hypothyroidism - continue tapazole F/E/N - low sodium diet - replete lytes prn ppx - protoniix - scd/oscar - ASA as per ortho Dispo: Currently requires inpatient management, pending SNF placement for short term rehab at the request of patient and family Code Status: FULL CODE
[2016-08-15] MEDS: ATORVASTATIN CA 10 MG TABLET (FP) PO SCH (21:19)
[2016-08-16] MEDS: GABAPENTIN 100 MG CAPSULE (FP) PO SCH ×3 (06:19→21:33)
[2016-08-16] MEDS: NYSTATIN POWDER 100,000 UNITS/GM - 15 GM TOPICAL POWDER TP SCH ×3 (06:45→21:36)
[2016-08-16] MEDS: ASPIRIN 325 MG TABLET PO SCH (07:40)
--- NOTE | 2016-08-16 08:16 | PN ---
Progress Note (short form) - Note Progress Note: Ortho Pt seen and examined s/p right karli thr pod #2 Selected Entries 08/16/16 06:14 Temperature 99.9 F H Pulse Rate 87 Respiratory 20 Rate Blood Pressure 119/52 Laboratory Tests 08/15/16 07:50 WBC 11.9 H D Hgb 11.2 Hct 33.0 Plt Count 212 dressing c/d/i, calf soft, nt nvi a/p PT dvt ppx pain control d/c planning to snf
[2016-08-16 08:24] LABS: MCH 27.9 pg (25.7-33.7); MEAN CELL VOLUME 82.2 fl (80-96); MEAN PLT VOLUME 9.5 fl (7.5-11.1); PLATELET COUNT 212 K/MM3 (134-434); RDW 13.7 % (11.6-15.6); WHITE BLOOD COUNT 11.5 K/mm3 (4.0-10.8)
[2016-08-16 08:27] LABS: BASOPHIL 0.4 % (0-2.0); EOSINOPHIL 1.1 % (0-4.5); MCH 27.8 pg (25.7-33.7); MEAN CELL VOLUME 81.6 fl (80-96); MEAN PLT VOLUME 9.5 fl (7.5-11.1); NEUTROPHILS 75.9 % (42.8-82.8); PLATELET COUNT 221 K/MM3 (134-434); RDW 13.9 % (11.6-15.6); WHITE BLOOD COUNT 11.9 K/mm3 (4.0-10.8)
[2016-08-16] MEDS: oxyCODONE HCL 5 MG TABLET PO PRN ×2 (08:37→21:39)
[2016-08-16 08:44] LABS: ANION GAP 9 (8-16); CALCIUM 8.9 mg/dl (8.4-10.2); CO2 25 mmol/L (22-28); CREATININE 0.6 mg/dl (0.6-1.3); GLUCOSE,RANDOM 117 mg/dl (74-106)
[2016-08-16] MEDS: CHOLECALCIFEROL (VITAMIN D3) 1,000 UNIT TABLET (FP) PO SCH (09:23)
[2016-08-16] MEDS: LACTOBACILLUS ACIDOPHILUS 1 EACH TAB (FP) PO SCH (09:23)
[2016-08-16] MEDS: VALSARTAN 160 MG TABLET (UD) PO SCH (09:23)
[2016-08-16] MEDS: MULTIVITAMINS (DAILY MVI) TABLET (FP) PO SCH (09:23)
[2016-08-16] MEDS: HYDROCHLOROTHIAZIDE 12.5 MG CAPSULE (FP) PO SCH (09:23)
[2016-08-16] MEDS: PANTOPRAZOLE 40 MG TABLET (FP) PO SCH (09:24)
[2016-08-16] MEDS: METHIMAZOLE 5 MG TABLET (FP) PO SCH (09:24)
[2016-08-16] MEDS: CALCIUM 500MG/VIT-D 200 UNITS COMBO TABLET (FP) PO SCH (09:24)
[2016-08-16] MEDS: SENNOSIDES/DOCUSATE COMBO (SENNA PLUS) TABLET (UD) PO SCH ×2 (09:24→21:34)
[2016-08-16] MEDS: METOPROLOL SUCCINATE 50 MG TAB.SR.24H (FP) PO SCH (09:24)
--- NOTE | 2016-08-16 14:06 | DS ---
Physical Exam: SUBJECTIVE: Patient seen and examined, ambulating in hallway with a walker, reports feeling well, denies any chest pain or shortness of breath. OBJECTIVE:his is a 75 yo woman with history of HTN, hyperthyroidism, chronic lower back pain, osteoporosis and AVN of right femoral head who was transferred from [facility] s/p [place] [facility] medical optimization and pain management pre- op for Right THR. Approximately 1 year ago, she was diagnosed with left Achilles tendonitis and notes her gait changed. She states that after her gait changed, she started having right hip and lower back pain. She denies trauma to lower back or hips. The pain was initially controlled with NSAIDS but NSAIDS no longer have any effect and the pain has now progressed to the point that she requires a walker for ambulation. She states that for the past month she has had intermittent urinary incontinence. She is currently scheduled for right THR on 08/14/16 [facility]. Vital Signs Period Temp Pulse Resp BP Sys/Kelly Pulse Ox Last 24 Hr 98.9 F-99.9 F 63-87 16-20 105-134/42-52 93-97 PHYSICAL EXAM GENERAL: The patient is awake, alert, and fully oriented, in no acute distress. HEAD: Normal with no signs of trauma. EYES: PERRL, extraocular movements intact, sclera anicteric, conjunctiva clear. No ptosis. ENT: Ears normal, nares patent, oropharynx clear without exudates, moist mucous membranes. NECK: Trachea midline, full range of motion, supple. LUNGS: Breath sounds equal, clear to auscultation bilaterally, no wheezes, no crackles, no accessory muscle use. HEART: Regular rate and rhythm, S1, S2 without murmur, rub or gallop. ABDOMEN: Soft, nontender, nondistended, normoactive bowel sounds, no guarding, no rebound, no hepatosplenomegaly, no masses. EXTREMITIES: 2+ pulses, warm, well-perfused, no edema. RIGHT LOWER EXTREMITY: dressing CDI, less than 3 second capillary refill, +3 pedal pulse NEUROLOGICAL: Cranial nerves II through XII grossly intact. Normal speech, gait not observed. PSYCH: Normal mood, normal affect. SKIN: Warm, dry, normal turgor, no rashes or lesions noted LABS Laboratory Results - last 24 hr 08/16/16 08/16/16 08/16/16 07:35 07:35 07:35 WBC 11.5 H 11.9 H RBC 3.83 3.94 Hgb 10.7 10.9 Hct 31.5 L 32.1 L MCV 82.2 81.6 MCHC 34.0 34.0 RDW 13.7 13.9 Plt Count 212 221 MPV 9.5 9.5 Neutrophils % 75.9 Lymphocytes % 14.8 D Monocytes % 7.8 Eosinophils % 1.1 D Basophils % 0.4 Sodium 133 L Potassium 4.2 Chloride 99 Carbon Dioxide 25 Anion Gap 9 BUN 16 D Creatinine 0.6 Random Glucose 117 H D Calcium 8.9 Vital Signs 08/16/16 08/16/16 08/16/16 06:14 08:25 09:21 Temperature 99.9 F H Pulse Rate 87 63 Respiratory 20 Rate Blood Pressure 119/52 134/46 O2 Sat by Pulse 93 L 93 L Oximetry (%) Microbiology 08/12/16 11:30 Urine - Urine Lopez Urine Culture - Final NO GROWTH OBTAINED IMAGING EKG: SR with occasional PAC's xray of right hip pelvis: marked joint space narrowing with subchondral sclerosis and lucencies and with focal concavity of the superolateral right femoral head concerning for AVN w/subchondral collapse and DJD. as per radiologist Dr Mojica MRI of lumbar spine w/o contrast: (08/09/16) severe spinal stenosis at L2-L3 through L4-L5. At the level of the L2 vertebral body there is buckling of the nerve roots of the cauda equina. L5-S1 there is billateral L5 nerve root impingement. as per radiologist Dr Ching ([facility]) HOSPITAL COURSE Patient was admitted for AVN of right femoral head. She was evaluated by neurosurgery at [facility], prior to arrival - continue neurontion - continue oxycodone 10mg q6h for severe pain and tylenol prn for minimal pain - ortho-lent, consulted and following - right karli thr 08/14/16 lower back pain - evaluated by neurosurgery at [facility] no cauda equina at this time - strict neurovascular assessments q4h - will need follow up with seafood specialist as outpatient 2) hypertension -b/p at goal, continue toprol and diovan - echo: grade 1 diastolic dysfunction, ef 55-60%, mild mr, mild tr - strict b/p monitoring 3) gu: - urinary retention, continue lopez - monitor I&O 4) endo hypothyroidism - continue tapazole F/E/N - low sodium diet - replete lytes prn ppx - protoniix - scd/oscar - ASA as per ortho Dispo: Currently requires inpatient management, pending SNF placement for short term rehab at the request of patient and family Code Status: FULL CODE Date of Admission:08/11/16 Date of Discharge: 08/16/16 Minutes to complete discharge: 45 Discharge Summary Reason For Visit: UNSPECIFIED FRACTURE OF RIGHT HIP Condition: Good - Instructions Diet, Activity, Other Instructions: Post-op Instructions-Total Hip Replacement Call the office for a follow-up appointment in 1 week - [phone] Aspirin 325mg daily for 6 weeks. Pain medication was sent into your pharmacy. Apply Graduated Compression Stockings (TEDs) to both lower extremities- remove daily for hygiene ONLY Apply Sequential Compression Device (SCDs) to both Lower extremities remove for PT and hygiene ONLY Apply cold packs to affected area for 15 minutes every 2 hours. Physical Therapist will come to your home for the first 5 days. You will be set up with outpatient PT at your first post-operative visit. Patient may ambulate as tolerated-encourage self care (at least every 2-3 hours while awake) with walker or cane Maintain Aquacel (waterproof) dressing to operative wound (will be removed by surgeon at first office visit) Shower with Aquacel dressing in place-if Aquacel integrity compromised, remove and apply dry sterile dressing and notify Orthopedist. DO NOT SHOWER unless Orthopedists approves without Aquacel dressing CONTACT THE OFFICE FOR ANY CHANGE IN YOUR CONDITION (for example-fever greater than 102 degrees,excessive bleeding from operative site, purulent drainage, severe swelling or pain) GO TO THE EMERGENCY ROOM IF THERE IS A MEDICAL EMERGENCY Hip Precautions: * Keep a rolled towel under affected heel while in bed or chair (to keep knee in extension) * Dependent upon approach: * Posterior - do not cross legs; do not sit on low chairs or toilets. * If you have any questions, please do not hesitate to call the office - . Referrals: Bebeto Chadwick MD [Staff Physician] - Disposition: VNS/HOME HEALTH CARE - Home Medications Comprehensive Discharge Medication List: Ambulatory Orders Ca/D3/Mag#11/Zinc/Candy Spreader/Turner/Bor [Caltrate 600+D Plus Tablet] 1 each PO DAILY 03/17 Cholecalciferol (Vitamin D3) [Vitamin D -] 1,000 unit PO DAILY 08/10/16 Hydrochlorothiazide [Hctz -] 12.5 mg PO DAILY 08/10/16 Methimazole [Tapazole -] 5 mg PO DAILY 08/10/16 Metoprolol Succinate [Toprol XL -] 50 mg PO DAILY MDD 50 mg 08/10/16 Omeprazole 40 mg PO DAILY 08/10/16 Simvastatin [Zocor -] 20 mg PO HS MDD 20 mg 08/10/16 Valsartan [Diovan] 160 mg PO DAILY MDD 160 mg 08/10/16 Zolpidem Tartrate [Ambien] 10 mg PO HS MDD 10 mg 08/10/16 Aspirin [ASA -] 325 mg PO DAILY@0800 tablet 08/14/16 Oxycodone HCl/Acetaminophen [Percocet 5-325 mg Tablet -] 1 - 2 tab PO Q6H #50 tab MDD 8 08/14/16 - Discharge Referral Referred to [facility] No
[2016-08-16] MEDS: ATORVASTATIN CA 10 MG TABLET (FP) PO SCH (21:34)
[2016-08-17] MEDS: oxyCODONE HCL 5 MG TABLET PO PRN ×2 (03:45→09:41)
[2016-08-17 06:02] VITALS: BP 114/41; PULSE 80; TEMP 99.5
[2016-08-17] MEDS: GABAPENTIN 100 MG CAPSULE (FP) PO SCH (06:12)
[2016-08-17] MEDS: NYSTATIN POWDER 100,000 UNITS/GM - 15 GM TOPICAL POWDER TP SCH (06:13)
[2016-08-17] MEDS: ASPIRIN 325 MG TABLET PO SCH (08:30)
--- NOTE | 2016-08-17 08:34 | PN ---
Progress Note (short form) - Note Progress Note: Ortho Pt seen and examined s/p right karli thr pod #3 Selected Entries 08/17/16 06:00 Temperature 99.5 F Pulse Rate 80 Respiratory 18 Rate Blood Pressure 114/41 Laboratory Tests 08/16/16 07:35 WBC 11.9 H Hgb 10.9 Hct 32.1 L Plt Count 221 dressing c/d/i, calf soft, nt nvi a/p PT dvt ppx pain control d/c to snf today f/u in the office in 10-14 days
[2016-08-17] MEDS: CHOLECALCIFEROL (VITAMIN D3) 1,000 UNIT TABLET (FP) PO SCH (09:29)
[2016-08-17] MEDS: PANTOPRAZOLE 40 MG TABLET (FP) PO SCH (09:29)
[2016-08-17] MEDS: CALCIUM 500MG/VIT-D 200 UNITS COMBO TABLET (FP) PO SCH (09:29)
[2016-08-17] MEDS: LACTOBACILLUS ACIDOPHILUS 1 EACH TAB (FP) PO SCH (09:29)
[2016-08-17] MEDS: SENNOSIDES/DOCUSATE COMBO (SENNA PLUS) TABLET (UD) PO SCH (09:29)
[2016-08-17] MEDS: METHIMAZOLE 5 MG TABLET (FP) PO SCH (09:30)
[2016-08-17] MEDS: METOPROLOL SUCCINATE 50 MG TAB.SR.24H (FP) PO SCH (09:30)
[2016-08-17] MEDS: HYDROCHLOROTHIAZIDE 12.5 MG CAPSULE (FP) PO SCH (09:30)
[2016-08-17] MEDS: MULTIVITAMINS (DAILY MVI) TABLET (FP) PO SCH (09:30)
[2016-08-17] MEDS: VALSARTAN 160 MG TABLET (UD) PO SCH (09:30)
[2016-08-17] MEDS: ACETAMINOPHEN 325 MG TABLET (FP) PO PRN (09:41)
--- NOTE | 2016-08-22 11:19 | PATH ---
Surgical Pathology Report Patient Name: VALERIE SIEGEL Med. Rec. #: [id number] /Age/Gender: 1940 (Age: 75) / F Account: [id number] Location: [facility] Taken: 08/14/2016 Received: 08/14/2016 Reported: 08/17/2016 Physicians: Bebeto Chadwick M.D. Specimen(s) Received RIGHT FEMORAL HEAD Clinical History Unspecified fracture of right hip Final Diagnosis FEMORAL HEAD, RIGHT, TOTAL HIP REPLACEMENT: FRACTURE (CLINICAL). DEGENERATIVE JOINT DISEASE. Electronically Signed Nini Rowland M.D. Gross Description Received in formalin labeled "right femoral head," is a 4.3 x 4.2 x 3.0 cm deformed appearing femoral head with a 1.1 cm in length portion of femoral neck attached. The margin of resection is smooth. The articular surface displays an area of indentation measuring 3.8 cm in greatest dimension. The articular surface is rios-yellow and diffusely nodular and granular. The underlying trabecular bone is yellow and hard. [employer] sections are submitted in one cassette, following decalcification. /08/15/2016 [facility]08/15/2016
== END 2016-08-17 11:20 | disposition home health service (06) | DRG 470 ==
LOC: FM/S 17:21
PROVIDERS: ADMIT Emergency Medicine; ATTEND Nurse Practitioner Family
PROC: 8E0Y0CZ Robotic Assisted Procedure of Lower Extremity, Open Approach (ICD-10-PCS; 2016-08-14)
PROC: 0SRR0JA Replacement of Right Hip Joint, Femoral Surface with Synthetic Substitute, Uncemented, Open Approach (ICD-10-PCS; principal; 2016-08-14 09:30)
DX: M16.11 Unilateral primary osteoarthritis, right hip (principal); M87.851 Other osteonecrosis, right femur; I10 Essential (primary) hypertension; M54.5 Low back pain; M81.0 Age-related osteoporosis without current pathological fracture; K21.9 Gastro-esophageal reflux disease without esophagitis; Z72.0 Tobacco use; R33.8 Other retention of urine; E03.9 Hypothyroidism, unspecified; R33.9 Retention of urine, unspecified
CPT/HCPCS: 36415; 70450-TC; 71010-TC; 73502-TC-RT; 73523-TC; 73700-TC-RT; 80048; 80053; 81003; 81015; 82550; 83735; 84100; 84484; 85025; 85027; 85610; 86850; 86900; 86901; 87086; 88305-TC; 88311-TC; 93005; 93306-TC; 93971-TC; 94010; 94760; 97116-GP; 97162-PG; 99283-25; J1644; J3480